=== PATIENT | female | born 1990 | race African-American/Black ===

== ENCOUNTER 2016-06-30 17:46 | Emergency (ER) | payer SELFPAY ==
[~2016-06-30] VITALS: Ht 162.6 cm; Wt 100.0 kg
[2016-06-30 17:48] VITALS: BP 141/92; PULSE 76; RESP 12; TEMP 97.9; O2SAT 98
--- NOTE | 2016-06-30 19:51 | PD ---
HPI Chief Complaint: Flank/Kidney Pain Time Seen by Provider: 19:51 Travel History International Travel<30 days: No Contact w/Intl Traveler<30days: No Traveled to known affect area: No History of Present Illness HPI 26 year-old female presents to the emergency department for evaluation of low back pain, urinary urgency, frequency, and burning since this morning. Patient reports no fever or chills. No nausea vomiting. States that she is on her menstrual cycle June 02, 2016 and is uncertain if she is . Denies any vaginal bleeding or discharge. She has no other symptoms to report. PFSH Past Medical History Medical History: Denies Significant Hx ?: Not LMP: 06/01/16 Social History Alcohol Use: No Tobacco Use: No Substance Use: No Allergies-Medications (Allergen,Severity, Reaction): Coded Allergies: No Known Allergies (Unverified , 06/30/16) Reported Meds & Prescriptions Reported Meds & Active Scripts Active Pyridium (Phenazopyridine HCl) 200 Mg Tab 200 Mg PO Q8H PRN Cipro (Ciprofloxacin HCl) 500 Mg Tab 500 Mg PO BID 5 Days Review of Systems Except as stated in HPI: all other systems reviewed are Neg Physical Exam Narrative GENERAL: Well-nourished, well-developed female patient, ambulatory and in no acute distress SKIN: Warm and dry. HEAD: Normocephalic. EYES: No scleral icterus. No injection or drainage. NECK: Supple, trachea midline. No JVD or lymphadenopathy. CARDIOVASCULAR: Regular rate and rhythm without murmurs, gallops, or rubs. RESPIRATORY: Breath sounds equal bilaterally. No accessory muscle use. Abdomen: Abdomen soft, nondistended. Slight suprapubic tenderness to deep palpation. Positive bowel sounds. No hepato-splenomegaly, or palpable masses. No guarding. MUSCULOSKELETAL: No cyanosis, or edema. BACK: Nontender without obvious deformity. No CVA tenderness. Data Data Last Documented VS Vital Signs Date Time Temp Pulse Resp B/P Pulse Ox O2 Delivery O2 Flow Rate FiO2 06/30/16 17:48 97.9 76 12 141/92 98 Room Air Orders Urinalysis - C+S If Indicated (06/30/16 19:44) Ed Urine Pregnancytest Poc (06/30/16 19:53) Ketorolac Inj (Toradol Inj) (06/30/16 20:30) Ibuprofen (Motrin) (06/30/16 21:00) Urine Culture (06/30/16 20:13) Labs Laboratory Tests Test 06/30/16 20:13 Urine Color YELLOW Urine Turbidity HAZY Urine pH 6.5 Urine Specific [place] 1.029 Urine Protein 30 mg/dL Urine Glucose (UA) NEG mg/dL Urine Ketones NEG mg/dL Urine Occult Blood MOD Urine Nitrite NEG Urine Bilirubin NEG Urine Urobilinogen LESS THAN 2.0 MG/DL Urine Leukocyte Esterase LARGE Urine RBC 24 /hpf Urine WBC /hpf Urine Squamous Epithelial 1 /hpf Cells Urine Mucus FEW /lpf Microscopic Urinalysis Comment CULTURE INDICATED MDM Medical Decision Making Medical Screen Exam Complete: Yes Emergency Medical Condition: Yes Medical Record Reviewed: Yes Differential Diagnosis Cystitis versus vaginitis versus urethritis versus pyelonephritis versus versus renal calculi Narrative Course 26-year-old female presents to emergency department for evaluation of low back pain and urinary symptoms. Patient appears without distress. She does have slight suprapubic tenderness to deep palpation. Urine is negative. Urinalysis is complete and shows hazy urine with 30 proteinuria, moderate focal blood, large leukocyte esterase, 24 RBC, innumerable WBC, few mucus, culture is indicated. Patient will be started on oral antibiotics. She is counseled on care and agrees to return immediately if any acute worsening of symptoms. Diagnosis Primary Impression: UTI (urinary tract infection) Qualified Code: N39.0 - Urinary tract infection with hematuria, site unspecified Referrals: Primary Care Physician Patient Instructions: General Instructions, Urinary Tract Infection in Women ( ED) Departure Forms: Tests/Procedures, Work Release Enter return to work date: Jul 02, 2016 Additional Instructions: Rest Maintain adequate oral hydration Follow-up with a primary care provider Tylenol or ibuprofen asked her how package as needed for pain Return immediately to the emergency department with any acute worsening of symptoms Med/Other Pt SpecificInfo: Prescription(s) given Scripts Phenazopyridine (Pyridium)200 Mg [id number] Mg PO Q8H PRN (DYSURIA) #20 TAB Ref 0 Prov:Adenike Gomes 06/30/16 Ciprofloxacin (Cipro)500 Mg [id number] Mg PO BID 5 Days Ref 0 Prov:Adenike Gomes 06/30/16 Disposition: 01 DISCHARGE HOME Condition: Stable Adenike Gomes Jun 30, 2016 19:51
[2016-06-30] MEDS: KETOROLAC TROMETHAMINE 60 MG/2 ML (IM) VIAL IM ONE ×2 (20:30→20:55)
[2016-06-30 20:52] LABS: BLOOD, URINE MOD (NEG); COMMENT (UR) CULTURE INDICATED; CULTURE IF INDICATED CULTURE INDICATED; GLUCOSE,URINE NEG (NEG); KETONE, URINE NEG (NEG); MUCUS URINE FEW /lpf (OCC); NITRITE,URINE NEG (NEG); PH, URINE 6.5 (5.0-8.5); SQUAMOUS EPITHELIAL CELL URINE 1 /hpf (0-5); URINE COLOR YELLOW (YELLW/STRAW)
[2016-06-30] MEDS ORDERED: IBUPROFEN 800 MG TAB PO ONE (21:00)
[2016-06-30] MEDS ORDERED: CIPR-9 PO (21:08)
[2016-06-30] MEDS ORDERED: PYRI200T4 PO (21:08)
== END 2016-06-30 21:19 | disposition home or self-care (01) ==
LOC: NEPB 17:46
DX: N39.0 Urinary tract infection, site not specified (principal); B96.20 Unspecified Escherichia coli [E. coli] as the cause of diseases classified elsewhere; B95.7 Other staphylococcus as the cause of diseases classified elsewhere
CPT/HCPCS: 81001; 84703; 86403; 87077; 87086; 87185; 87186; 99283; J1885